=== PATIENT | female | born 1950 | race Caucasian/White ===

== ENCOUNTER 2017-01-17 10:59 | Emergency (ER) | payer OTHER ==
--- NOTE | ~2017-01-17 | CR20 ---
[facility] A Service of [facility] & [facility] RADIOLOGY TEXT RESULTS PATIENT: SRIRAM SERNA LOCATION: CFTX : 48 UNIT #: [id number] AGE: [address]: Chrissie Roberto MD SEX: F ORDER DR: [id number] [facility] [address] [place], [place] [address] [id number] E MR#: [id number] Acc #: [id number] NAME: SRIRAM SERNA. : 1950 SEX: F STUDY DATE/TIME: 01/17/2017 11:40 UNIT: [facility] ROOM: STUDY DESCRIPTION: CR Ankle Min 3 Views Lt Attending Physician: Chrissie Roberto M.D. Ordering Physician: Chrissie Roberto M.D. Primary Care Physician: Yaya Pineda D.O. MEDICAL IMAGING REPORT This report is preliminary unless electronic signature is present EXAM Left ankle, 3 views. INDICATIONS Fall, ankle pain today. COMPARISON There are no comparison studies available. FINDINGS There is an obliquely oriented minimally-displaced fracture of the distal fibula. Ankle mortise intact. Calcaneal spurring. IMPRESSION Obliquely oriented fracture of the distal fibula. Dictated by... Bj Townsend M.D. THIS IS AN ELECTRONICALLY VERIFIED REPORT Bj Townsend M.D. at 01/18/2017 3:48 PM BRE/rolly TD: 01/17/2017 22:53 JOB #: [id number] MEDICAL IMAGING REPORT Page 1 of 1 COPY
[~2017-01-17 10:59] MED LIST: ARIXTRA10 MG/0.8 SQ; COUMADIN PO; COUMADIN5 MG PO; LOTREL 5/20 MG1 CAP PO; METOPROLOL TAR25 MG PO; OXYCODONE HCL10 MG PO; VICODIN ES 7.51 EACH PO; VITAL-D RX TABL1 TAB; VOLTAREN75 MG PO
== END 2017-01-17 12:26 | disposition home or self-care (01) ==
LOC: CFTX 10:59 → CED 10:59 → CFTX 11:49
DX: S82.832A Other fracture of upper and lower end of left fibula, initial encounter for closed fracture (principal); X50.1XXA Overexertion from prolonged static or awkward postures, initial encounter; Y92.009 Unspecified place in unspecified non-institutional (private) residence as the place of occurrence of the external cause
CPT/HCPCS: 29540; 73610; 99283